=== PATIENT | male | born 1980 | race Caucasian/White ===

== ENCOUNTER 2017-12-11 11:08 | Emergency (ER) | payer OTHER ==
[~2017-12-11] VITALS: Ht 180.3 cm; Wt 83.9 kg
[~2017-12-11 11:08] MED LIST: BACITRAYCIN PLU28 GM TOP; Silvadene20 GM TOP
[2017-12-11] MEDS ORDERED: Bactrim Ds Tab1 EACH PO (12:19)
[2017-12-11] MEDS ORDERED: Keflex500 MG PO (12:19)
== END 2017-12-11 12:23 | disposition home or self-care (01) ==
LOC: ER 11:08
DX: S81.012D Laceration without foreign body, left knee, subsequent encounter (principal); L08.9 Local infection of the skin and subcutaneous tissue, unspecified; F17.200 Nicotine dependence, unspecified, uncomplicated; Z88.0 Allergy status to penicillin; W29.3XXD Contact with powered garden and outdoor hand tools and machinery, subsequent encounter
CPT/HCPCS: 99283